=== PATIENT | male | born 1990 | race Caucasian/White ===

== ENCOUNTER 2022-10-25 08:37 | Emergency (ER) | payer OTHER ==
[~2022-10-25] VITALS: Ht 177 cm; Wt 74.0 kg
--- NOTE | 2022-10-25 09:40 | ED General ---
General Chief Complaint: Facial Problems Stated Complaint: FACIAL INFECTION Nursing Triage Note: PT AMB TO [facility] PT CO OF L SIDED FACIAL SWELLING FOR A COUPLE DAYS. PT FACE SWOLLEN REDDEND, PT HAS SWELLING FROM JAW AREA UP INTO L EYE. PT HAS ABCESS AREA NEAR MOUSTACHE THAT IS OOZING SOME YELLOW THICK FLUID. DENIES FEVERS. WAS SEEN @ [facility] YESTERDAY RECIEVED ROCEPHIN AND CLINDAMYCIN 150MG PO Q 8 HOURS AND IS GETTING WORSE. PT ALSO HAS RENAL FAILURE AND IS ON PERITONEAL DIALYSIS Source of Information: Patient Exam Limitations: No Limitations History of Present Illness Date Seen by Provider: Oct 25, 2022 Time Seen by Provider: 09:29 Initial Comments This 32-year-old gentleman presents to the emergency room with significant pain and swelling to the left face. He has presumed cellulitis and possibly abscess. There is a crusted area with drainage superior and lateral to the left corner of his mouth. He denies any fever. Symptoms have been present for 3 to 4 days. He presented to the [facility] clinic yesterday and was given a Rocephin injection and prescribed clindamycin 450 mg 3 times daily. He reports pain is 5/10. 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 He does not have a primary care provider but his heel painter is Orlando Gastelum at [facility] in [place]. Allergies and Home Medications Allergies Coded Allergies: No Known Drug Allergies (Unverified , 10/25/22) Patient Home Medication List Home Medication List Reviewed: Yes Doxycycline Hyclate (Doxycycline Hyclate) 100 Mg Tablet, 100 MG PO BID Prescribed by: AJ FIGUEROA on 10/25/22 1209 Hydrocodone/Acetaminophen (Hydrocodone-Acetamin 5-325 mg) 5 Mg-325 Mg Tablet, 1 TAB PO Q4H PRN for PAIN-MODERATE (5-7) Prescribed by: AJ FIGUEROA on 10/25/22 1210 Ondansetron (Ondansetron Odt) 4 Mg Tab.rapdis, 4 MG SL Q4H PRN for NAUSEA/VOMITING Prescribed by: AJ FIGUEROA on 10/25/22 1209 Review of Systems Review of Systems Constitutional: no symptoms reported EENTM: see HPI Respiratory: no symptoms reported Cardiovascular: no symptoms reported Gastrointestinal: no symptoms reported Genitourinary: see HPI Musculoskeletal: no symptoms reported Skin: no symptoms reported Psychiatric/Neurological: No Symptoms Reported Hematologic/Lymphatic: No Symptoms Reported Immunological/Allergic: no symptoms reported Past Zyuyubh-Wiwhpq-Glsjtt Hx Patient Social History Tobacco Use?: No Use of E-Cig and/or Vaping dev: No Substance use?: Yes Substance type: Marijuana Alcohol Use?: No Past Medical History Surgeries: Yes Cardiac (Cardiac angiography without intervention), Renal (Biopsy) Respiratory: No Cardiac: No Neurological: No Genitourinary: Yes Renal Failure (CKD on peritoneal dialysis secondary to Alport syndrome) Gastrointestinal: No Musculoskeletal: No Endocrine: No HEENT: No Cancer: No Psychosocial: No Integumentary: No Physical Exam-Suspected Sepsis Physical Exam Vital Signs Vital Signs - First Documented 10/25/22 09:09 Pulse 89 Resp 18 B/P (MAP) 180/130 (147) Pulse Ox 97 Capillary Refill : Less Than 3 Seconds Blood Pressure Mean: 147 Height, Weight, BMI Height: '" Weight: lbs. oz. kg; 23.00 BMI Method: General Appearance: No Apparent Distress, WD/WN, Thin HEENT: PERRL/EOMI, TMs Normal, Other (Severe swelling to the left face extending from the lips up to the periorbital and eyelid region. There is a c rusted area superior and lateral to the left mouth corner that is oozing some purulent and serous see fluid. There is scattered erythema over the swollen areas. These areas are tender to palpation.) Neck: Normal Inspection, Non Tender Respiratory: Lungs Clear, Normal Breath Sounds, No Accessory Muscle Use Cardiovascular: Regular Rate, Rhythm, No Edema, No Murmur Extremity: Normal Inspection Neurologic/Psychiatric: Alert, Oriented x3, No Motor/Sensory Deficits, Normal Mood/Affect, floatlight powder mixer II-XII Norm as Tested Skin: warm/dry, other (See above) Focused Exam Lactate Level 10/25/22 09:48: Lactic Acid Level 0.62 Lactic Acid Level Progress/Results/Core Measures Suspected Sepsis SIRS Temperature: Pulse: 89 Respiratory Rate: 18 Laboratory Tests 10/25/22 09:48: White Blood Count 9.9 Blood Pressure 180 /130 Mean: 147 10/25/22 09:48: Lactic Acid Level 0.62 Laboratory Tests 10/25/22 09:48: Creatinine 15.35H, INR Comment 1.1, Platelet Count 211, Total Bilirubin 0.6 Results/Orders Lab Results Laboratory Tests Test 10/25/22 09:48 Range/Units White Blood Count 9.9 4.3-11.0 10^3/uL Red Blood Count 2.93 L 4.30-5.52 10^6/uL Hemoglobin 9.3 L 13.3-17.7 g/dL Hematocrit 27 L 40-54 % Mean Corpuscular Volume 93 80-99 fL Mean Corpuscular Hemoglobin 32 25-34 pg Mean Corpuscular Hemoglobin Concent 34 32-36 g/dL Red Cell Distribution Width 15.8 H 10.0-14.5 % Platelet Count 211 130-400 10^3/uL Mean Platelet Volume 9.7 9.0-12.2 fL Immature Granulocyte % (Auto) 0 % Neutrophils (%) (Auto) 77 H 42-75 % Lymphocytes (%) (Auto) 17 12-44 % Monocytes (%) (Auto) 6 0-12 % Eosinophils (%) (Auto) 0 0-10 % Basophils (%) (Auto) 0 0-10 % Neutrophils # (Auto) 7.6 1.8-7.8 10^3/uL Lymphocytes # (Auto) 1.6 1.0-4.0 10^3/uL Monocytes # (Auto) 0.6 0.0-1.0 10^3/uL Eosinophils # (Auto) 0.0 0.0-0.3 10^3/uL Basophils # (Auto) 0.0 0.0-0.1 10^3/uL Immature Granulocyte # (Auto) 0.0 0.0-0.1 10^3/uL Prothrombin Time 14.8 H 12.2-14.7 SEC INR Comment 1.1 0.8-1.4 Activated Partial Thromboplast Time 32 24-35 SEC Sodium Level 133 L 135-145 MMOL/L Potassium Level 4.8 3.6-5.0 MMOL/L Chloride Level 100 98-107 MMOL/L Carbon Dioxide Level 22 21-32 MMOL/L Anion Gap 11 5-14 MMOL/L Blood Urea Nitrogen 74 H 7-18 MG/DL Creatinine 15.35 H 0.60-1.30 MG/DL Estimat Glomerular Filtration Rate 4 BUN/Creatinine Ratio 5 Glucose Level 108 H 70-105 MG/DL Lactic Acid Level 0.62 0.50-2.00 MMOL/L Calcium Level 8.2 L 8.5-10.1 MG/DL Corrected Calcium 8.8 8.5-10.1 MG/DL Total Bilirubin 0.6 0.1-1.0 MG/DL Aspartate Amino Transf (AST/SGOT) 12 5-34 U/L Alanine Aminotransferase (ALT/SGPT) 7 0-55 U/L Alkaline Phosphatase 45 40-136 U/L C-Reactive Protein High Sensitivity 1.18 H 0.00-0.50 MG/DL Total Protein 5.6 L 6.4-8.2 GM/DL Albumin 3.2 3.2-4.5 GM/DL My Orders Orders - AJ RIVEAR MD Cbc With Automated Diff (10/25/22 09:28) Hs C Reactive Protein (10/25/22 09:28) Ed Iv/Invasive Line Start (10/25/22 09:28) Ondansetron Injection (Zofran Injectio (10/25/22 09:45) Ct Neck (Soft Tissue) Wo (10/25/22 09:37) Comprehensive Metabolic Panel (10/25/22 09:37) Blood Culture (10/25/22 09:37) Protime With Inr (10/25/22 09:37) Partial Thromboplastin Time (10/25/22 09:37) Vital Signs Adult Sepsis Patie Q15M (10/25/22 09:37) Remove Rings In Anticipation O (10/25/22 09:37) Lactic Acid Analyzer (10/25/22 09:37) Hydrocodone/Apap 5/325 Tablet (Lortab 5 (10/25/22 12:00) Medications Given in ED Current Medications Medications Dose Ordered Sig/Alicia Route Start Time Stop Time Status Last Admin Dose Admin Acetaminophen/ Hydrocodone Bitart 1 ea ONCE ONCE PO 10/25/22 12:00 10/25/22 12:01 DC 10/25/22 12:17 1 EA Ondansetron HCl 4 mg ONCE ONCE IVP 10/25/22 09:45 10/25/22 09:46 DC 10/25/22 10:26 4 MG Vital Signs/I&O Capillary Refill : Less Than 3 Seconds Blood Pressure Mean: 147 Progress Note : Progress Note Patient was interviewed and examined. Labs were obtained including septic workup including CBC, CMP, Lactic Acid, and CRP. Patient does not appear septic due as vital signs, WBC, CRP, and lactic acid are all normal. CT soft tissues of the neck was viewed by me. No discrete abscess was seen. CT report was reviewed as noted below. CT was performed without contrast due to his renal failure. Because the CT was performed without contrast, it was followed by bedside ultrasound. There was area of lucency noted on ultrasound but when compared with the contralateral side, it seemed to correlate with a muscle sheath of the perioral musculature. Incision and drainage was therefore not performed. There was some oozing around this area suggesting that abscess had been present or still is present to some degree. Warm compresses as often as he is able were recommended. Doxycycline was added for additional antibiotic coverage for staph. Doxycycline was selected due to the renal failure. Since patient did not have significant abscess nor sepsis, admission was not sought. Pain was treated with hydrocodone. Zofran was given for nausea. See discharge instructions for further discussion. Diagnostic Imaging Diagonstic Imaging: CT Plain Films/CT/US/NM/MRI: other (Soft tissues of the neck) Comments CT viewed by me and report reviewed as below: NAME: ANGELA PAINTING [facility] REC#: [id number] PT STATUS: REG ER : 1990 PHYSICIAN: AJ RIVERA MD ADMIT DATE: 10/25/22/ER Signed Date of Exam:10/25/22 CT NECK (SOFT TISSUE) WO PROCEDURE: CT neck soft tissue without contrast. TECHNIQUE: Multiple contiguous axial images were obtained through the neck without the use of intravenous contrast. Auto Exposure Controls were utilized during the CT exam to meet ALARA standards for radiation dose reduction. INDICATION: Swelling under the left cheek. COMPARISON: None. FINDINGS: There is diffuse soft tissue edema and inflammation in the face left of midline extending from the inferior aspect of the left orbit into the left neck. Milder inflammation is seen in the soft tissues of the face on the right. No focal fluid collection is seen to suggest abscess. No soft tissue mass is identified. Reactive cervical lymphadenopathy is seen, greatest in the left submandibular region and left level 2 cervical lymph node station. Dental caries and periapical lucencies are seen involving the molars of the maxilla bilaterally. No obvious cortical disruption is seen. The posterior nasopharynx and oropharynx demonstrate appropriate symmetry. There is no displacement of the parapharyngeal fat planes. There is no abnormal process evident within the prevertebral or retropharyngeal space. There is no evidence of abnormal thickening of the epiglottis or aryepiglottic folds. The vocal folds appear symmetric. The parotid, submandibular, and thyroid glands are unremarkable. The visualized lung apices are clear. The visualized orbital contents are unremarkable. No post septal inflammation. Mucosal thickening is seen in the bilateral maxillary sinuses. The mastoids and middle ears are clear. No acute osseous abnormality in the cervical spine. IMPRESSION: 1. Findings suggestive of cellulitis involving the soft tissues of the face left of midline from the inferior aspect of the left orbit into the submandibular region. No abscess or discrete soft tissue mass is seen. 2. 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 This may be the source of the facial cellulitis. There is also paranasal sinus disease involving the maxillary sinuses which also contribute to the facial cellulitis. Recommend continued close followup. 3. No evidence of post septal inflammation in the orbits. 4. Reactive lymphadenopathy in the neck, greatest on the left. Dictated by: Dictated on workstation # [id number] Dict: 10/25/22 0959 Trans: 10/25/22 1037 [id number] Interpreted by: SKIP ROMERO DO Electronically signed by: SKIP ROMERO DO 10/25/22 1037 Departure Impression Primary Impression: Facial cellulitis Additional Impressions: Periodontal disease Nausea End stage renal disease on dialysis Disposition: HOME, SELF-CARE Condition: Improved Departure-Patient Inst. Decision time for Depature: 12:01 Referrals: CECILIA BARRERA BRETT D DO KIDO, TAKAAKI MD NO,LOCAL PHYSICIAN (PCP) Primary Care Physician Patient Instructions: Cellulitis (Skin Infection), Adult ED Add. Discharge Instructions: At this time it does not appear (based on CT exam (that there is a significant abscess that is amenable to drainage. However, it appears the drainage has occurred and using warm compresses can encourage that drainage to continue. Use warm moist compresses on your left cheek to encourage draining as much as possible. Very gentle milking of the area around the drainage may also be used to encourage expression of fluid or pus. Keeping your head elevated rather than lying flat should help reduce swelling. For mild pain you may use Tylenol (acetaminophen) up to 1000 mg every 6 hours as needed. For more severe pain use hydrocodone as prescribed. Hydrocodone may cause drowsiness, so use with caution. Do not operate machinery, drive, or make important decisions while on hydrocodone. Hydrocodone may also cause constipation, so you may wish to use a stool softener such as Colace while taking hydrocodone. Complete the entire course of clindamycin as prescribed. Add doxycycline as prescribed as well. Use the Zofran (ondansetron) as prescribed for nausea or vomiting. Continue dialysis as routinely scheduled. Please have a low threshold for returning to care. If you believe there is an abscess developing with an area of fullness, if you develop fevers greater than 100.3 F, or if you have any other concerning developments, please return to the emergency room. The healing and progression of this cellulitis should be closely monitored. Please establish with a primary care provider or contact one of the local surgeons listed below to arrange follow-up. Alternatively, you may also return to the emergency room for repeat check of your wound if a primary care provider or surgeon is not available in a timely fashion. Please also schedule an appointment with a dentist within the next few weeks to have your periodontal disease evaluated. Continue brushing teeth gently twice daily with a soft bristle toothbrush. All discharge instructions reviewed with patient and/or family. Voiced understanding. Scripts Ondansetron (Ondansetron Odt) 4 Mg Tab.rapdis 4 MG SL Q4H PRN for NAUSEA/VOMITING, #10 TAB 10 Refills Prov: AJ RIVERA MD 10/25/22 Hydrocodone/Acetaminophen (Hydrocodone-Acetamin 5-325 mg) 5 Mg-325 Mg Tablet 1 TAB PO Q4H PRN for PAIN-MODERATE (5-7), #15 TAB Prov: AJ RIVERA MD 10/25/22 Doxycycline Hyclate (Doxycycline Hyclate) 100 Mg Tablet 100 MG PO BID, #20 TAB 0 Refills Prov: AJ RIVERA MD 10/25/22 AJ RIVERA MD Oct 25, 2022 09:40
[2022-10-25] MEDS ORDERED: ONDANSETRON 4 MG/2 ML (SDV) Z0FRAN IVP ONE (09:45)
[2022-10-25 09:52] LABS: BASOPHILS % (AUTO) 0 % (0-10); EOSINOPHILS % (AUTO) 0 % (0-10); HEMATOCRIT 27 % (40-54); HEMOGLOBIN 9.3 g/dL (13.3-17.7); LYMPHOCYTES # (AUTO) 1.6 10^3/uL (1.0-4.0); LYMPHOCYTES % (AUTO) 17 % (12-44); MEAN CORPUSCULAR HEMOGLOBIN 32 pg (25-34); MEAN CORPUSCULAR HGB CONC 34 g/dL (32-36); MEAN CORPUSCULAR VOLUME 93 fL (80-99); MEAN PLATELET VOLUME 9.7 fL (9.0-12.2); MONOCYTES # (AUTO) 0.6 10^3/uL (0.0-1.0); MONOCYTES % (AUTO) 6 % (0-12); NEUTROPHILS # (AUTO) 7.6 10^3/uL (1.8-7.8); NEUTROPHILS % (AUTO) 77 % (42-75); PLATELET COUNT 211 10^3/uL (130-400); WHITE BLOOD COUNT 9.9 10^3/uL (4.3-11.0)
[2022-10-25 10:03] LABS: ALBUMIN 3.2 GM/DL (3.2-4.5)
[2022-10-25 10:04] LABS: POTASSIUM 4.8 MMOL/L (3.6-5.0)
[2022-10-25 10:05] LABS: CALCIUM 8.2 MG/DL (8.5-10.1); INR 1.1 (0.8-1.4); PROTHROMBIN TIME PATIENT 14.8 SEC (12.2-14.7)
[2022-10-25 10:06] LABS: TOTAL PROTEIN 5.6 GM/DL (6.4-8.2)
[2022-10-25 10:08] LABS: BILIRUBIN,TOTAL 0.6 MG/DL (0.1-1.0)
[2022-10-25 10:10] LABS: CREATININE SERUM 15.35 MG/DL (0.60-1.30)
--- NOTE | 2022-10-25 10:17 | Diagnostic Imaging Report ---
PROCEDURE: CT neck soft tissue without contrast. TECHNIQUE: Multiple contiguous axial images were obtained through the neck without the use of intravenous contrast. Auto Exposure Controls were utilized during the CT exam to meet ALARA standards for radiation dose reduction. INDICATION: Swelling under the left cheek. COMPARISON: None. FINDINGS: There is diffuse soft tissue edema and inflammation in the face left of midline extending from the inferior aspect of the left orbit into the left neck. Milder inflammation is seen in the soft tissues of the face on the right. No focal fluid collection is seen to suggest abscess. No soft tissue mass is identified. Reactive cervical lymphadenopathy is seen, greatest in the left submandibular region and left level 2 cervical lymph node station. Dental caries and periapical lucencies are seen involving the molars of the maxilla bilaterally. No obvious cortical disruption is seen. The posterior nasopharynx and oropharynx demonstrate appropriate symmetry. There is no displacement of the parapharyngeal fat planes. There is no abnormal process evident within the prevertebral or retropharyngeal space. There is no evidence of abnormal thickening of the epiglottis or aryepiglottic folds. The vocal folds appear symmetric. The parotid, submandibular, and thyroid glands are unremarkable. The visualized lung apices are clear. The visualized orbital contents are unremarkable. No post septal inflammation. Mucosal thickening is seen in the bilateral maxillary sinuses. The mastoids and middle ears are clear. No acute osseous abnormality in the cervical spine. IMPRESSION: 1. Findings suggestive of cellulitis involving the soft tissues of the face left of midline from the inferior aspect of the left orbit into the submandibular region. No abscess or discrete soft tissue mass is seen. 2. 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 This may be the source of the facial cellulitis. There is also paranasal sinus disease involving the maxillary sinuses which also contribute to the facial cellulitis. Recommend continued close followup. 3. No evidence of post septal inflammation in the orbits. 4. Reactive lymphadenopathy in the neck, greatest on the left. Dictated by: Dictated on workstation # [id number]
[2022-10-25] MEDS ORDERED: HYDROcodone/APAP 5 MG/325 MG (LORTAB) TAB PO ONE (12:00)
[2022-10-25] MEDS ORDERED: ONDA4TAB11 SL (12:09)
[2022-10-25] MEDS ORDERED: ACHD5005 PO (12:09)
[2022-10-25] MEDS ORDERED: DOXY100T2 PO (12:09)
[2022-10-25 12:17] VITALS: BP 168/100
== END 2022-10-25 12:17 | disposition home or self-care (01) ==
LOC: EDUNIT# 08:37 → ER 08:40
DX: L03.211 Cellulitis of face (principal); K05.6 Periodontal disease, unspecified; N18.6 End stage renal disease; Z99.2 Dependence on renal dialysis
CPT/HCPCS: 36415; 70490; 80053; 83605; 85025; 85610; 85730; 86141; 87040

== ENCOUNTER 2022-11-16 16:42 | Emergency (ER) | payer OTHER ==
[~2022-11-16] VITALS: Ht 177 cm; Wt 74.0 kg
[~2022-11-16 16:42] MED LIST: ACHD5005 PO; DOXY100T2 PO; ONDA4TAB11 SL
--- NOTE | 2022-11-16 17:09 | ED General ---
General Chief Complaint: Cardiac/General Problems Stated Complaint: ELEV BP Nursing Triage Note: Patient ambulatory to room w c/o high blood pressure. hx of kidney disease. currently on dialysis. Patient takes bp meds at home but "they are not working." 180/133 at home. Losartin, Amlodipine, Carbiterol, Hydralazine last taken an hr ago. Just came off peritineal dialysis 2 hrs ago. Source of Information: Patient Exam Limitations: No Limitations History of Present Illness Date Seen by Provider: Nov 16, 2022 Time Seen by Provider: 16:57 Initial Comments Patient is a 32-year-old male with a history of Alport's syndrome who presents to the emergency room with a chief complaint of high blood pressure. Patient has a history of end-stage renal disease on peritoneal dialysis 8 hours a day. He states he has not missed any dialysis. He took his blood pressure medications approximately an hour prior to arrival, losartan, amlodipine carvedilol and hydralazine and has not had any improvement in his blood pressure. He has been running in the 180s over 130s consistently. His only symptom is moderate headache that he states is entirely consistent with prior headaches related to high blood pressure. No vision changes, no chest pain or shortness of breath. No abdominal pain. Urinating normally. No fevers, chills or sick contacts. Timing/Duration: 1 Week Severity: Moderate Associated Systoms: Headaches Allergies and Home Medications Allergies Coded Allergies: No Known Drug Allergies (Unverified , 10/25/22) Patient Home Medication List Home Medication List Reviewed: Yes Doxycycline Hyclate (Doxycycline Hyclate) 100 Mg Tablet, 100 MG PO BID Prescribed by: AJ FIGUEROA on 10/25/22 1209 Hydrocodone/Acetaminophen (Hydrocodone-Acetamin 5-325 mg) 5 Mg-325 Mg Tablet, 1 TAB PO Q4H PRN for PAIN-MODERATE (5-7) Prescribed by: AJ FIGUEROA on 10/25/22 1210 Ondansetron (Ondansetron Odt) 4 Mg Tab.rapdis, 4 MG SL Q4H PRN for NAUSEA/VOMITING Prescribed by: AJ FIGUEROA on 10/25/22 1209 Review of Systems Review of Systems Constitutional: see HPI EENTM: no symptoms reported Respiratory: no symptoms reported Cardiovascular: no symptoms reported Gastrointestinal: no symptoms reported Genitourinary: no symptoms reported Musculoskeletal: no symptoms reported Skin: no symptoms reported Psychiatric/Neurological: Headache All Other Systems Reviewed Negative Unless Noted: Yes Past Tbjttua-Owoqvd-Lgvgms Hx Patient Social History Tobacco Use?: No Substance use?: Yes Substance type: Marijuana Alcohol Use?: No Immunizations Up To Date First/Initial COVID19 Vaccinat: unknown COVID19 Vaccine Platform Beater: unknown Past Medical History Surgeries: Yes Cardiac, Renal Respiratory: No Cardiac: No Neurological: No Genitourinary: Yes Renal Failure Gastrointestinal: No Musculoskeletal: No Endocrine: No HEENT: No Cancer: No Psychosocial: No Integumentary: No Physical Exam Vital Signs Vital Signs - First Documented 11/16/22 16:49 Temp 36.0 Pulse 83 Resp 18 B/P (MAP) 181/129 (146) Pulse Ox 98 O2 Delivery Room Air Capillary Refill : Less Than 3 Seconds Height, Weight, BMI Height: '" Weight: lbs. oz. kg; 23.00 BMI Method: General Appearance: No Apparent Distress, WD/WN Eyes: Bilateral Eye Normal Inspection, Bilateral Eye PERRL, Bilateral Eye EOMI HEENT: PERRL/EOMI Neck: Normal Inspection Respiratory: Lungs Clear, Normal Breath Sounds, No Accessory Muscle Use, No Respiratory Distress Cardiovascular: Regular Rate, Rhythm, Normal Peripheral Pulses Gastrointestinal: Soft Extremity: Normal Inspection, No Pedal Edema Neurologic/Psychiatric: Alert, Oriented x3, No Motor/Sensory Deficits, Normal Mood/Affect Skin: Normal Color, Warm/Dry Progress/Results/Core Measures Suspected Sepsis SIRS Temperature: Pulse: 83 Respiratory Rate: 18 Laboratory Tests 11/16/22 17:20: White Blood Count 4.1L Blood Pressure 181 /129 Mean: 146 Laboratory Tests 11/16/22 17:20: Platelet Count 143, Total Bilirubin 0.8 Results/Orders Lab Results Laboratory Tests Test 11/16/22 17:20 Range/Units White Blood Count 4.1 L 4.3-11.0 10^3/uL Red Blood Count 3.01 L 4.30-5.52 10^6/uL Hemoglobin 9.5 L 13.3-17.7 g/dL Hematocrit 27 L 40-54 % Mean Corpuscular Volume 91 80-99 fL Mean Corpuscular Hemoglobin 32 25-34 pg Mean Corpuscular Hemoglobin Concent 35 32-36 g/dL Red Cell Distribution Width 12.3 10.0-14.5 % Platelet Count 143 130-400 10^3/uL Mean Platelet Volume 11.4 9.0-12.2 fL Immature Granulocyte % (Auto) 1 % Neutrophils (%) (Auto) 64 42-75 % Lymphocytes (%) (Auto) 29 12-44 % Monocytes (%) (Auto) 6 0-12 % Eosinophils (%) (Auto) 0 0-10 % Basophils (%) (Auto) 1 0-10 % Neutrophils # (Auto) 2.6 1.8-7.8 10^3/uL Lymphocytes # (Auto) 1.2 1.0-4.0 10^3/uL Monocytes # (Auto) 0.2 0.0-1.0 10^3/uL Eosinophils # (Auto) 0.0 0.0-0.3 10^3/uL Basophils # (Auto) 0.0 0.0-0.1 10^3/uL Immature Granulocyte # (Auto) 0.0 0.0-0.1 10^3/uL Sodium Level 136 135-145 MMOL/L Potassium Level 4.9 3.6-5.0 MMOL/L Chloride Level 103 98-107 MMOL/L Carbon Dioxide Level 20 L 21-32 MMOL/L Anion Gap 13 5-14 MMOL/L Blood Urea Nitrogen 74 H 7-18 MG/DL Estimat Glomerular Filtration Rate 4 BUN/Creatinine Ratio 5 Glucose Level 114 H 70-105 MG/DL Calcium Level 8.5 8.5-10.1 MG/DL Corrected Calcium 8.9 8.5-10.1 MG/DL Total Bilirubin 0.8 0.1-1.0 MG/DL Alkaline Phosphatase 36 L 40-136 U/L Total Protein 5.7 L 6.4-8.2 GM/DL Albumin 3.5 3.2-4.5 GM/DL My Orders Orders - URVASHI DE LA TORRE MD Ed Iv/Invasive Line Start (11/16/22 17:09) Cbc With Automated Diff (11/16/22 17:09) Comprehensive Metabolic Panel (11/16/22 17:09) Losartan Tablet (Cozaar Tablet) (11/16/22 17:30) Carvedilol Tablet (Coreg Tablet) (11/16/22 17:30) Nifedipine Xl Tablet (Procardia Xl Tab (11/16/22 17:30) Acetaminophen Tablet (Tylenol Tablet) (11/16/22 17:30) Medications Given in ED Current Medications Medications Dose Ordered Sig/Alicia Route Start Time Stop Time Status Last Admin Dose Admin Acetaminophen 1,000 mg ONCE ONCE PO 11/16/22 17:30 11/16/22 17:31 DC 11/16/22 17:30 1,000 MG Vital Signs/I&O 11/16/22 16:49 Temp 36.0 Pulse 83 Resp 18 B/P (MAP) 181/129 (146) Pulse Ox 98 O2 Delivery Room Air Capillary Refill : Less Than 3 Seconds Blood Pressure Mean: 146 Progress Note #1: Time: 17:08 Progress Note Call made to the transplant team at at this time to speak with the parachute packer. Progress Note #2: Time: 17:18 Progress Note Discussed with Dr Lovett transplant financial management at (where patient's team is). He made recommendations to change medications and discontinue amlodipine and switch to Nifedipine 60mg BID; increase carvedilol to 25mg BID and double his Losartan to 50 mg. Will add these medications and see how his BP does while awaiting labs. Departure Impression Primary Impression: High blood pressure with end-stage kidney disease Disposition: 01 HOME, SELF-CARE Condition: Improved Departure-Patient Inst. Referrals: RUBIN FARRELL DO (PCP/Family) Primary Care Physician Patient Instructions: High Blood Pressure Emergencies Add. Discharge Instructions: We are going to change the dosing of some of your medications and stop one of them, the amlodipine. These instructions are per Dr. Lovett your transplant financial management. So stop the amlodipine and start taking nifedipine 60 mg XR twice a day starting tomorrow. We are increasing your carvedilol from 12.5 mg twice a day to 25 mg twice a day. We are increasing your losartan from 25 mg once a day to 50 mg once a day. Please keep tabs on your blood pressure over the next several days. If you become symptomatic, lightheaded, short of breath, dizzy please check your blood pressure otherwise you can check your blood pressure once or twice a day at different times and keep a log of this. Please touch base with your transplant team Sunday or Sunday and let them know how these medication changes are wo rking. If you develop any new, concerning or emergent complaints please come back to the emergency room for reevaluation. Scripts Losartan Potassium (Losartan Potassium) 50 Mg Tablet 50 MG PO DAILY, #30 TAB Prov: URVASHI DE LA TORRE MD 11/16/22 Nifedipine (Nifedipine ER) 60 Mg Tab.er.24 60 MG PO BID, #60 TAB Prov: URVASHI DE LA TORRE MD 11/16/22 Carvedilol (Carvedilol) 25 Mg Tablet 25 MG PO BID, #60 TAB Prov: URVASHI DE LA TORRE MD 11/16/22 Copy Copies To 1: RUBIN FARRELL KATHRYN M MD Nov 16, 2022 17:09
[2022-11-16] MEDS ORDERED: NIFEdipine ER 30 MG (PROCARDIA XL) TAB PO ONE (17:30)
[2022-11-16] MEDS ORDERED: ACETAMINOPHEN 500 MG TAB (TYLENOL) PO ONE (17:30)
[2022-11-16] MEDS ORDERED: LOSARTAN 25 MG (COZAAR) TAB PO ONE (17:30)
[2022-11-16 17:32] LABS: BASOPHILS % (AUTO) 1 % (0-10); EOSINOPHILS % (AUTO) 0 % (0-10); HEMATOCRIT 27 % (40-54); HEMOGLOBIN 9.5 g/dL (13.3-17.7); LYMPHOCYTES # (AUTO) 1.2 10^3/uL (1.0-4.0); LYMPHOCYTES % (AUTO) 29 % (12-44); MEAN CORPUSCULAR HEMOGLOBIN 32 pg (25-34); MEAN CORPUSCULAR HGB CONC 35 g/dL (32-36); MEAN CORPUSCULAR VOLUME 91 fL (80-99); MEAN PLATELET VOLUME 11.4 fL (9.0-12.2); MONOCYTES # (AUTO) 0.2 10^3/uL (0.0-1.0); MONOCYTES % (AUTO) 6 % (0-12); NEUTROPHILS # (AUTO) 2.6 10^3/uL (1.8-7.8); NEUTROPHILS % (AUTO) 64 % (42-75); PLATELET COUNT 143 10^3/uL (130-400); WHITE BLOOD COUNT 4.1 10^3/uL (4.3-11.0)
[2022-11-16 17:40] LABS: ALBUMIN 3.5 GM/DL (3.2-4.5)
[2022-11-16 17:41] LABS: POTASSIUM 4.9 MMOL/L (3.6-5.0)
[2022-11-16 17:42] LABS: CALCIUM 8.5 MG/DL (8.5-10.1)
[2022-11-16 17:43] LABS: TOTAL PROTEIN 5.7 GM/DL (6.4-8.2)
[2022-11-16 17:45] LABS: BILIRUBIN,TOTAL 0.8 MG/DL (0.1-1.0)
[2022-11-16 17:47] LABS: CREATININE SERUM 15.37 MG/DL (0.60-1.30)
[2022-11-16] MEDS ORDERED: CARV25TA PO (17:52)
[2022-11-16] MEDS ORDERED: NIFE-24 PO (17:52)
[2022-11-16] MEDS ORDERED: LOSA50TA63 PO (17:52)
[2022-11-16 18:20] VITALS: BP 169/124
== END 2022-11-16 18:20 | disposition home or self-care (01) ==
LOC: EDUNIT# 16:42 → ER 16:44
DX: R03.0 Elevated blood-pressure reading, without diagnosis of hypertension (principal); N18.6 End stage renal disease; Z99.2 Dependence on renal dialysis
CPT/HCPCS: 36415; 80053; 85025

== ENCOUNTER 2023-01-01 19:58 | Emergency (ER) | payer OTHER ==
[~2023-01-01] VITALS: Ht 172 cm; Wt 58.9 kg
[~2023-01-01 19:58] MED LIST changes: +CARV25TA PO; +LOSA50TA63 PO; +NIFE-24 PO
[2023-01-01] MEDS ORDERED: CALCIUM CHLORIDE 1 GM/10 ML (IMS) SYR INJ ONE ×2 (20:00→21:15)
[2023-01-01] MEDS ORDERED: ROCURONIUM 10 MG/ML 5 ML SYRINGE IV ONE ×2 (20:00→21:30)
[2023-01-01] MEDS ORDERED: PROPOFOL DRIP (ICU) 100 ML IV ONE (20:04)
[2023-01-01 20:13] LABS: ABG OXYGEN SATURATION 85 % (94-100); ABG PCO2 47 MMHG (35-45); ABG PO2 71 MMHG (79-93); ABG TCO2 14.6 MMOL/L (21.0-31.0)
[2023-01-01 20:15] LABS: ABG PH 7.08 (7.37-7.43); ALLENS TEST YES-POS; INSPIRED O2 100; VENTILATOR NO
[2023-01-01] MEDS ORDERED: PROPOFOL DRIP (ICU) 100 ML IV SCH (20:15)
[2023-01-01] MEDS ORDERED: NS IV 1000 ML 1,000 ML IV SCH (20:15)
[2023-01-01] MEDS ORDERED: LIDOCAINE UROJET 2% GEL 10 ML PKG TOP ONE (20:15)
[2023-01-01] MEDS ORDERED: CEFEPIME INJECTION 1,000 MG in NS (IVPB) 50 ML IV ONE (20:15)
[2023-01-01 20:16] LABS: PATIENT TEMP 36.9
[2023-01-01 20:18] LABS: BASOPHILS # (AUTO) 0.1 10^3/uL (0.0-0.1); BASOPHILS % (AUTO) 1 % (0-10); EOSINOPHILS # (AUTO) 0.1 10^3/uL (0.0-0.3); EOSINOPHILS % (AUTO) 0 % (0-10); HEMATOCRIT 32 % (40-54); HEMOGLOBIN 10.2 g/dL (13.3-17.7); LYMPHOCYTES % (AUTO) 4 % (12-44); MEAN CORPUSCULAR HEMOGLOBIN 32 pg (25-34); MEAN CORPUSCULAR HGB CONC 32 g/dL (32-36); MEAN CORPUSCULAR VOLUME 100 fL (80-99); MONOCYTES # (AUTO) 1.4 10^3/uL (0.0-1.0); MONOCYTES % (AUTO) 6 % (0-12); NEUTROPHILS # (AUTO) 22.2 10^3/uL (1.8-7.8); NEUTROPHILS % (AUTO) 86 % (42-75); PLATELET COUNT 305 10^3/uL (130-400); WHITE BLOOD COUNT 25.7 10^3/uL (4.3-11.0)
[2023-01-01 20:24] LABS: ALBUMIN 4.1 GM/DL (3.2-4.5); CHLORIDE 107 MMOL/L (98-107); POTASSIUM 6.1 MMOL/L (3.6-5.0); SODIUM 141 MMOL/L (135-145)
[2023-01-01 20:25] LABS: AMMONIA 35 UMOL/L (11-32); AMYLASE 53 U/L (25-125); CALCIUM 8.8 MG/DL (8.5-10.1)
[2023-01-01 20:26] LABS: GLUCOSE 173 MG/DL (70-105)
[2023-01-01 20:28] LABS: BILIRUBIN,TOTAL 0.3 MG/DL (0.1-1.0)
[2023-01-01 20:30] LABS: ALKALINE PHOSPHATASE 75 U/L (40-136); CREATININE SERUM 12.53 MG/DL (0.60-1.30); GFR ESTIMATED 5
[2023-01-01] MEDS ORDERED: SODIUM BICARB 8.4% 50 MEQ/50 ML (ABBOTT) SYR IV ONE (20:30)
[2023-01-01 20:31] LABS: BUN/CREATININE RATIO 5
[2023-01-01 20:33] LABS: ALANINE AMINOTRANSFERASE 20 U/L (0-55); MAGNESIUM 3.4 MG/DL (1.6-2.4)
[2023-01-01 20:34] LABS: CREATINE KINASE 1101 U/L (30-200); FIBRIN DEGRADATION PRODUCTS 4.84 UG/ML (0.00-0.49); INR 1.1 (0.8-1.4); SALICYLATE < 5.0 MG/DL (5.0-20.0)
[2023-01-01 20:40] LABS: ACETAMINOPHEN < 10 UG/ML (10-30); CARBON DIOXIDE 9 MMOL/L (21-32)
--- NOTE | 2023-01-01 20:48 | Diagnostic Imaging Report ---
PROCEDURE: CT cervical spine without contrast. TECHNIQUE: Multiple contiguous axial images were obtained through the cervical spine without the use of intravenous contrast. Sagittal and coronal reformations were then performed. Auto Exposure Controls were utilized during the CT exam to meet ALARA standards for radiation dose reduction. INDICATION: Unresponsive. COMPARISON: None Findings: The cervical spine is normally aligned. No acute fracture. No aggressive lytic or blastic osseous lesion. The intervertebral disc heights are maintained. No high-grade spinal canal stenosis or neural foraminal narrowing. The thyroid gland is normal. No cervical lymphadenopathy. The visualized aerodigestive tract is unremarkable. The visualized portions of the lungs are clear. Impression: No acute osseous abnormality of the cervical spine. Dictated by: Dictated on workstation # [id number]
--- NOTE | 2023-01-01 20:51 | Diagnostic Imaging Report ---
PROCEDURE: CT head wo r/o stroke. TECHNIQUE: Multiple contiguous axial images were obtained through the brain without the use of intravenous contrast. Auto Exposure Controls were utilized during the CT exam to meet ALARA standards for radiation dose reduction. INDICATION: Unresponsive. Right posterior scalp hematoma trace subarachnoid hemorrhage in the right temporal lobe. The modi-white matter differentiation is preserved. No intraventricular blood. No blood within the suprasellar cisterns. Intraparenchymal hemorrhage in the right occipital lobe measuring 1.0 cm. Scattered hypoattenuation within the bilateral subcortical white matter. No midline shift or mass effect. No intracranial mass. The sella is normal. The paranasal sinuses and mastoids are clear. Mild mucosal thickening within the bilateral maxillary sinuses. IMPRESSION: Intraparenchymal hematoma within the right occipital lobe measuring up to 1 cm. Trace subarachnoid hemorrhage in the right temporal sulci. Age indeterminate nonspecific hypoattenuation within the bilateral subcortical white matter. MRI with and without contrast should be obtained for further workup as these may represent acute infarcts. Report given to YOGI Castañeda and faxed at 8:49 PM 01/01/2023/cb Dictated by: Dictated on workstation # [id number]
[2023-01-01 20:52] LABS: LYMPHOCYTES % (MANUAL) 5 %; MONOCYTES % (MANUAL) 5 %; NEUTROPHILS % (MANUAL) 90 %; PLATELET CLUMPS FEW; POLYCHROMASIA MODERATE
[2023-01-01 20:53] LABS: ANISOCYTOSIS MARKED; ERYTHROCYTE SEDIMENTATION RATE 5 MM/HR (0-15); MICROCYTOSIS MODERATE; SCHISTOCYTES SLIGHT; TEAR DROP CELLS SLIGHT
[2023-01-01 20:54] LABS: TSH (THYROID ANALYZER) 2.02 UIU/ML (0.35-4.94)
[2023-01-01] MEDS ORDERED: LABETALOL HCL 20 MG/4 ML VIAL IV ONE (21:00)
[2023-01-01] MEDS ORDERED: RT-ALBUTEROL SULF 2.5 MG/3 ML PRE-MIX VIAL INH STA (21:06)
--- NOTE | 2023-01-01 21:07 | Diagnostic Imaging Report ---
CHEST 1 VIEW, AP/PA ONLY INDICATION: AMS, INTUBATED. COMPARISON: None. FINDINGS: Support devices: Right central venous catheter tip projects over the SVC. Endotracheal tube projects over the upper trachea. Lungs: Normal lung volume. No focal consolidation. Stable pulmonary vasculature. Pleura: No pleural effusion or pneumothorax. Heart and Mediastinum: Cardiomegaly. Pulmonary vascularity is within normal limits. Osseous Structures and Soft Tissues: No acute osseous abnormality. Normal soft tissues. IMPRESSION: Cardiomegaly. No focal consolidation or carlos manuel pulmonary edema. Dictated by: Dictated on workstation # [id number]
[2023-01-01 21:09] LABS: CREATINE KINASE MB 11.3 NG/ML (<6.6)
[2023-01-01] MEDS ORDERED: DEXTROSE 50% 50 ML (IMS) SYR IV ONE (21:15)
[2023-01-01] MEDS ORDERED: inSUlin (REGULAR) HUMAN 1 UNIT/0.01 ML (CHARGE PER UNIT) IV ONE (21:15)
[2023-01-01] MEDS ORDERED: SODIUM POLYSTYRENE POWDER 15 GM BOTTLE NG ONE (21:15)
[2023-01-01 21:34] LABS: LIPASE 22 U/L (8-78)
[2023-01-01] MEDS ORDERED: CALC GLUC 1 GM/100 ML IV ONE (21:35)
[2023-01-01 21:38] LABS: BILIRUBIN,URINE NEGATIVE (NEGATIVE); CLARITY,URINE CLEAR; COLOR,URINE YELLOW; GLUCOSE, URINE (UA) 1+ (NEGATIVE); KETONES,URINE NEGATIVE (NEGATIVE); LEUKOCYTE ESTERASE ,URINE NEGATIVE (NEGATIVE); NITRITE,URINE NEGATIVE (NEGATIVE); PH,URINE 7.5 (5-9); PROTEIN,URINE 3+ (NEGATIVE)
[2023-01-01] MEDS ORDERED: DEXTROSE 50% 50 ML (IMS) SYR ONE (21:39)
[2023-01-01 21:54] LABS: ABG BASE EXCESS -6.1 MMOL/L (-2.5-2.5); ABG OXYGEN SATURATION 100 % (94-100); ABG PCO2 44 MMHG (35-45); ABG PO2 135 MMHG (79-93); ALLENS TEST YES-POS; INSPIRED O2 60%; PATIENT TEMP 36.9; VENTILATOR YES
[2023-01-01] MEDS ORDERED: NS (IVPB) 250 ML ONE (21:55)
[2023-01-01] MEDS ORDERED: niCARdipine IV PYXIS DRIP KIT = 50 MG X 2 VIALS ONE (21:55)
[2023-01-01 21:58] LABS: ABG PH 7.27 (7.37-7.43)
[2023-01-01] MEDS ORDERED: niCARdipine IV 50 MG in NS (IVPB) 230 ML IV SCH (22:00)
[2023-01-01 22:01] LABS: AMPHETAMINE SCREEN, URINE NEGATIVE (NEGATIVE); BARBITURATE SCREEN URINE NEGATIVE (NEGATIVE); BENZODIAZEPINES SCREEN URINE NEGATIVE (NEGATIVE); CANNABINOID SCREEN, URINE POSITIVE (NEGATIVE); COCAINE SCREEN URINE NEGATIVE (NEGATIVE); METHADONE STAT NEGATIVE (NEGATIVE); OPIATE SCREEN URINE NEGATIVE (NEGATIVE); OXYCODONE STAT NEGATIVE (NEGATIVE); PROPOXYPHENE STAT NEGATIVE (NEGATIVE); TRICYCLIC ANTIDEPRESSANTS SCRE NEGATIVE (NEGATIVE)
[2023-01-01 22:17] LABS: BACTERIA,URINE FEW /HPF; WBC,URINE 0-2 /HPF
[2023-01-01 22:18] LABS: AMORPHOUS SEDIMENT,UR FEW AMOR PHOSPHATE /LPF; URINE OTHER FEW SPERM /HPF
[2023-01-01 22:30] VITALS: BP 205/149
--- NOTE | 2023-01-24 05:43 | ED General ---
General Chief Complaint: Unresponsive Stated Complaint: UNRESPONSIVE Nursing Triage Note: pt to rm 6 via [facility] from home. [facility] reports pt was found lying prone in closet while on p.d dialysis treatment. Pt convulsed upon EMS arrival, pt not alert not conscious. EMS RSI and intubated pt on scene to protect airway. 7.0 ETT, 24cm at the teeth. EMS inititated 18g LAC SL in route to ER, patent upon arrival. Upon arrival pt 76% SpO2 via BVM. RT in room during triage, pt moved to ventilator immediatley upon arrival. UNK LKW Source of Information: EMS, Family (MOM AND BROTHER ), Old Records History of Present Illness Date Seen by Provider: January 01, 2023 Time Seen by Provider: 19:59 Initial Comments PT ARRIVES VIA EMS FROM HOME PT WAS FOUND LAYING FACE DOWN IN CLOSET, STILL ATTACHED TO PERITONEAL DIALYSIS, COMPLETELY UNRESPONSIVE WITH SNOROUS AND SOMEWHAT AGONAL BREATHING. LAST KNOWN WELL TIME WAS SOMETIME THIS MORNING. PT HAD "CONVULSIONS" FOR EMS. PT DOES NOT HAVE ANY REPORTED HISTORY OF SEIZURES. GLUCOSE 148 BY EMS PT WAS INTUBATED BY EMS PRIOR TO ARRIVAL, WITH ETOMIDATE 20 MG, SUCCINYLCHOLINE, FENTANYL 100 MCG, VERSED 5 MG. PT IS BEING BAGGED VIA ET TUBE ON ARRIVAL HERE EMS REPORT THEIR VITALS AFTER INTUBATION WERE O2 SAT 88%, HR 120'S, BP 240'S/140'S, ET CO2 54. ON ARRIVAL, O2 SATS IN THE LOW TO MID 70'S WHILE BEING BAGGED VIA ET TUBE. PT HAS HISTORY OF ALPORT'S SYNDROME WITH SEVERE HTN AND END STAGE RENAL FAILURE, ON PERITONEAL DIALYSIS HE RECEIVED A RENAL TRANSPLANT AT THE END OF NOVEMBER, AND HAS KNOWN REJECTION OF KIDNEY, AND THEREFORE PERITONEAL DIALYSIS HAS BEEN CONTINUED. HE HAS BEEN HOME FROM SINCE 12/28/22. Allergies and Home Medications Allergies Coded Allergies: No Known Drug Allergies (Unverified , 10/25/22) Patient Home Medication List Home Medication List Reviewed: Yes Carvedilol (Carvedilol) 25 Mg Tablet, 25 MG PO BID Prescribed by: URVASHI DE LA TORRE on 11/16/22 9262 Doxycycline Hyclate (Doxycycline Hyclate) 100 Mg Tablet, 100 MG PO BID Prescribed by: AJ FIGUEROA on 10/25/22 1209 Hydrocodone/Acetaminophen (Hydrocodone-Acetamin 5-325 mg) 5 Mg-325 Mg Tablet, 1 TAB PO Q4H PRN for PAIN-MODERATE (5-7) Prescribed by: AJ FIGUEROA on 10/25/22 1210 Losartan Potassium (Losartan Potassium) 50 Mg Tablet, 50 MG PO DAILY Prescribed by: URVASHI DE LA TORRE on 11/16/22 175 Nifedipine (Nifedipine ER) 60 Mg Tab.er.24, 60 MG PO BID Prescribed by: URVASHI DE LA TORRE on 11/16/22 175 Ondansetron (Ondansetron Odt) 4 Mg Tab.rapdis, 4 MG SL Q4H PRN for NAUSEA/VOMITING Prescribed by: AJ FIGUEROA on 10/25/22 1209 Review of Systems Review of Systems Constitutional: other (UNABLE TO OBTAIN) Past Tkjusbt-Ofkrgb-Ibtqmx Hx Patient Social History Tobacco Use?: No Substance use?: Yes Substance type: Marijuana Substance frequency: Daily Alcohol Use?: No Immunizations Up To Date First/Initial COVID19 Vaccinat: unknown Past Medical History Surgeries: Yes Cardiac, Dialysis, Kidney Transplant, Renal Respiratory: No Cardiac: Yes Hypertension Neurological: No Genitourinary: Yes (ALPORT'S SYNDROME; ESRD ON PEROTONEAL DIALYSIS; S/P RENAL TRANSPLANT) Renal Failure Gastrointestinal: No Musculoskeletal: No Endocrine: No HEENT: No Cancer: No Psychosocial: No Integumentary: No Family Medical History PAST MEDICAL HISTORY: CARDIAC CATH--NO INTERVENTION -ALPORT'S SYNDROME -RENAL BIOPSY HAS BEEN ON PERITONEAL DIALYSIS HAD RENAL TRANSPLANT END OF NOVEMBER AT , WITH ONGOING REJECTION. HAS BEEN HOME SINCE 12/28/22. PERITONEAL DIALYSIS CONTINUED POST TRANSPLANT. Physical Exam Vital Signs Capillary Refill : Less Than 3 Seconds Height, Weight, BMI Height: '" Weight: lbs. oz. kg; 19.00 BMI Method: General Appearance: Severe Distress, Other (PT INTUBATED AND UNRESPONSIVE. ) HEENT: Other (PUPILS PINPOINT AND EQUAL) Respiratory: Other (BREATH SOUNDS EQUAL WITH BAGGING VIA ET TUBE) Cardiovascular: Tachycardia Gastrointestinal: Soft, Other (RECENT SURGICAL SCAR IN RLQ, PERITONEAL DIALYSIS SITE / TUBING LLQ) Extremity: No Pedal Edema, Slow Capillary Refill Neurologic/Psychiatric: Other (UNRESPONSIVE) Skin: Cool (DRY), Pallor Focused Exam Sepsis Stage: Sepsis Possible Source: Unknown (2114) Lactate Level 01/01/23 20:12: Lactic Acid Level 11.10*H Time of Focused Exam: 21:15 Respiratory: Other (LUNG SOUNDS CLEAR AND EQUAL ON VENTILATOR) Cardiovascular: Tachycardia Lactic Acid Level Laboratory Tests Test 01/01/23 20:12 Lactic Acid Level 11.10 MMOL/L (0.50-2.00) *H Within 3hrs of presentation: Admin fluids, Admin ABX, Blood cultures prior to ABX's, Focus exam, Lactate level Procedures/Interventions Date of ETT Placement: January 01, 2023 Time of ETT Placement: 2011 Tube Size: 7.00 Progress/Results/Core Measures Suspected Sepsis SIRS Temperature: Pulse: 97 Respiratory Rate: 20 Laboratory Tests 01/01/23 20:04: White Blood Count 25.7H Blood Pressure 205 /149 Mean: 167 01/01/23 20:12: Lactic Acid Level 11.10*H Laboratory Tests 01/01/23 20:04: Creatinine 12.53H, INR Comment 1.1, Platelet Count 305, Total Bilirubin 0.3 Results/Orders Lab Results Laboratory Tests Test 01/01/23 20:04 01/01/23 20:09 01/01/23 20:12 01/01/23 21:02 Range/Units White Blood Count 25.7 H 4.3-11.0 10^3/uL Red Blood Count 3.18 L 4.30-5.52 10^6/uL Hemoglobin 10.2 L 13.3-17.7 g/dL Hematocrit 32 L 40-54 % Mean Corpuscular Volume 100 H 80-99 fL Mean Corpuscular Hemoglobin 32 25-34 pg Mean Corpuscular Hemoglobin Concent 32 32-36 g/dL Red Cell Distribution Width 17.5 H 10.0-14.5 % Platelet Count 305 130-400 10^3/uL Mean Platelet Volume 10.0 9.0-12.2 fL Immature Granulocyte % (Auto) 3 % Neutrophils (%) (Auto) 86 H 42-75 % Lymphocytes (%) (Auto) 4 L 12-44 % Monocytes (%) (Auto) 6 0-12 % Eosinophils (%) (Auto) 0 0-10 % Basophils (%) (Auto) 1 0-10 % Neutrophils # (Auto) 22.2 H 1.8-7.8 10^3/uL Lymphocytes # (Auto) 1.0 1.0-4.0 10^3/uL Monocytes # (Auto) 1.4 H 0.0-1.0 10^3/uL Eosinophils # (Auto) 0.1 0.0-0.3 10^3/uL Basophils # (Auto) 0.1 0.0-0.1 10^3/uL Immature Granulocyte # (Auto) 0.9 H 0.0-0.1 10^3/uL Neutrophils % (Manual) 90 % Lymphocytes % (Manual) 5 % Monocytes % (Manual) 5 % Clumped Platelets FEW Polychromasia MODERATE Anisocytosis MARKED Microcytosis MODERATE Macrocytosis MODERATE Tear Drop Cells SLIGHT Schistocytes SLIGHT Erythrocyte Sedimentation Rate 5 0-15 MM/HR Prothrombin Time 15.0 H 12.2-14.7 SEC INR Comment 1.1 0.8-1.4 Activated Partial Thromboplast Time 29 24-35 SEC D-Dimer 4.84 H 0.00-0.49 UG/ML Sodium Level 141 135-145 MMOL/L Potassium Level 6.1 H 3.6-5.0 MMOL/L Chloride Level 107 98-107 MMOL/L Carbon Dioxide Level 9 *L 21-32 MMOL/L Anion Gap 25 H 5-14 MMOL/L Blood Urea Nitrogen 59 H 7-18 MG/DL Creatinine 12.53 H 0.60-1.30 MG/DL Estimat Glomerular Filtration Rate 5 BUN/Creatinine Ratio 5 Glucose Level 173 H 70-105 MG/DL Calcium Level 8.8 8.5-10.1 MG/DL Corrected Calcium 8.7 8.5-10.1 MG/DL Magnesium Level 3.4 H 1.6-2.4 MG/DL Total Bilirubin 0.3 0.1-1.0 MG/DL Aspartate Amino Transf (AST/SGOT) 41 H 5-34 U/L Alanine Aminotransferase (ALT/SGPT) 20 0-55 U/L Alkaline Phosphatase 75 40-136 U/L Ammonia 35 H 11-32 UMOL/L Total Creatine Kinase 1101 H 30-200 U/L Creatine Kinase MB 11.3 *H <6.6 NG/ML Myoglobin 4794.5 H 10.0-92.0 NG/ML Troponin I 0.153 H <0.028 NG/ML C-Reactive Protein High Sensitivity 0.59 H 0.00-0.50 MG/DL Total Protein 7.0 6.4-8.2 GM/DL Albumin 4.1 3.2-4.5 GM/DL Amylase Level 53 25-125 U/L Lipase 22 8-78 U/L TSH [place] Testing 2.02 0.35-4.94 UIU/ML Salicylates Level < 5.0 L 5.0-20.0 MG/DL Acetaminophen Level < 10 L 10-30 UG/ML Serum Alcohol < 10 <10 MG/DL Blood Gas Puncture Site RIGHT RAD Blood Gas Patient Temperature 36.9 Arterial Blood pH 7.08 *L 7.37-7.43 Arterial Blood Partial Pressure CO2 47 H 35-45 MMHG Arterial Blood Partial Pressure O2 71 L 79-93 MMHG Arterial Blood HCO3 13 *L 23-27 MMOL/L Arterial Blood Total CO2 14.6 L 21.0-31.0 MMOL/L Arterial Blood Oxygen Saturation 85 L 94-100 % Arterial Blood Base Excess -15.0 L -2.5-2.5 MMOL/L Bear Test YES-POS Blood Gas Ventilator Setting NO Blood Gas Inspired Oxygen 100 Lactic Acid Level 11.10 *H 0.50-2.00 MMOL/L Influenza Type A (RT-PCR) Not Detected Not Detecte Influenza Type B (RT-PCR) Not Detected Not Detecte SARS-CoV-2 RNA (RT-PCR) Not Detected Not Detecte Glucometer 144 H 70-110 MG/DL Test 01/01/23 21:32 01/01/23 21:37 Range/Units Urine Color YELLOW Urine Clarity CLEAR Urine pH 7.5 5-9 Urine Specific [place] 1.020 1.016-1.022 Urine Protein 3+ H NEGATIVE Urine Glucose (UA) 1+ H NEGATIVE Urine Ketones NEGATIVE NEGATIVE Urine Nitrite NEGATIVE NEGATIVE Urine Bilirubin NEGATIVE NEGATIVE Urine Urobilinogen 0.2 < = 1.0 MG/DL Urine Leukocyte Esterase NEGATIVE NEGATIVE Urine RBC (Auto) 2+ H NEGATIVE Urine RBC 5-10 H /HPF Urine WBC 0-2 /HPF Urine Crystals PRESENT H /LPF Urine Amorphous Sediment FEW PAMELA PHOSPHATE H /LPF Urine Bacteria FEW H /HPF Urine Casts NONE /LPF Urine Mucus NEGATIVE /LPF Urine Other FEW SPERM H /HPF Urine Culture Indicated YES Urine Opiates Screen NEGATIVE NEGATIVE Urine Oxycodone Screen NEGATIVE NEGATIVE Urine Methadone Screen NEGATIVE NEGATIVE Urine Propoxyphene Screen NEGATIVE NEGATIVE Urine Barbiturates Screen NEGATIVE NEGATIVE Ur Tricyclic Antidepressants Screen NEGATIVE NEGATIVE Urine Phencyclidine Screen NEGATIVE NEGATIVE Urine Amphetamines Screen NEGATIVE NEGATIVE Urine Methamphetamines Screen NEGATIVE NEGATIVE Urine Benzodiazepines Screen NEGATIVE NEGATIVE Urine Cocaine Screen NEGATIVE NEGATIVE Urine Cannabinoids Screen POSITIVE H NEGATIVE Blood Gas Puncture Site RR Blood Gas Patient Temperature 36.9 Arterial Blood pH 7.27 *L 7.37-7.43 Arterial Blood Partial Pressure CO2 44 35-45 MMHG Arterial Blood Partial Pressure O2 135 H 79-93 MMHG Arterial Blood HCO3 20 L 23-27 MMOL/L Arterial Blood Total CO2 21.0 21.0-31.0 MMOL/L Arterial Blood Oxygen Saturation 100 94-100 % Arterial Blood Base Excess -6.1 L -2.5-2.5 MMOL/L Bear Test YES-POS Blood Gas Ventilator Setting YES Blood Gas Inspired Oxygen 60% Micro Results Microbiology 01/01/23 Blood Culture - Final, Complete No growth 01/01/23 Blood Culture - Final, Complete No growth My Orders Orders - ANALISA LEARY DO Accucheck Stat ONCE (01/01/23 20:03) Ed Iv/Invasive Line Start (01/01/23 20:03) Ekg Tracing (01/01/23 20:03) Catheter(Urinary) Insert & Ass 03,15 (01/01/23 20:03) O2 (01/01/23 20:03) Monitor-Rhythm Ecg Trace Only (01/01/23 20:03) Ct Head Wo-R/O Stroke (01/01/23 20:03) Ct Cervical Spine Wo (01/01/23 20:03) Chest 1 View, Ap/Pa Only (01/01/23 20:03) Acetaminophen (01/01/23 20:03) Alcohol (01/01/23 20:03) Ammonia (01/01/23 20:03) Amylase (01/01/23 20:03) Arterial Blood Gas (01/01/23 20:03) Cbc With Automated Diff (01/01/23 20:03) Comprehensive Metabolic Panel (01/01/23 20:03) Creatine Kinase (01/01/23 20:03) Creatine Kinase Mb (01/01/23 20:03) Hs C Reactive Protein (01/01/23 20:03) Fibrin Degradation Products (01/01/23 20:03) Drug Screen Stat (Urine) (01/01/23 20:03) Lactic Acid Analyzer (01/01/23 20:03) Lipase (01/01/23 20:03) Magnesium (01/01/23 20:03) Protime With Inr (01/01/23 20:03) Partial Thromboplastin Time (01/01/23 20:03) Salicylate (01/01/23 20:03) Thyroid Analyzer (01/01/23 20:03) Ua Culture If Indicated (01/01/23 20:03) Erythrocyte Sedimentation Rate (01/01/23 20:03) Myoglobin Serum (01/01/23 20:03) Troponin I Ruben (01/01/23 20:03) Ed Iv/Invasive Line Start (01/01/23 20:03) Ns Iv 1000 Ml (Sodium Chloride 0.9%) (01/01/23 20:15) Covid 19 Inhouse Test (01/01/23 20:03) Lidocaine 2% (Urojet) (Xylocaine Urojet) (01/01/23 20:15) Influenza A And B By Pcr (01/01/23 20:03) Isolation Central Supply Req (01/01/23 20:03) Ng Tube Insert & Assessment (01/01/23 20:03) Blood Culture (01/01/23 20:03) Sputum Culture (01/01/23 20:03) Ed Iv/Invasive Line Start (01/01/23 20:03) Ed Iv/Invasive Line Start (01/01/23 20:03) Vital Signs Adult Sepsis Patie Q15M (01/01/23 20:03) O2 (01/01/23 20:03) Remove Rings In Anticipation O (01/01/23 20:03) Cefepime Injection (Maxipime Injection) (01/01/23 20:15) Propofol Drip (Icu) (Diprivan Drip (Icu) (01/01/23 20:04) Propofol Drip (Icu) (Diprivan Drip (Icu) (01/01/23 20:15) Sedation Communication Q48H (01/01/23 20:08) Arterial Blood Draw - Obtain (01/01/23 ) Sodium Bicarbonate 8.4% Syr (Sodium Bica (01/01/23 20:30) Manual Differential (01/01/23 20:04) Labetalol Injection (Normodyne Injection (01/01/23 21:00) Insulin (Regular) Human (Novolin R (Per (01/01/23 21:15) D50w (Emergency) Syringe (Dextrose 50% 5 (01/01/23 21:15) Sodium Polystyrene Powder (Kayexalate P (01/01/23 21:15) Calcium Chloride 10% Injection (Calcium (01/01/23 21:15) Albuterol Pre-Mix Nebs (Rt) (Proventil (01/01/23 21:06) Rt Request For Service (01/01/23 21:06) Svn Small Volume Nebulizer (01/01/23 21:06) Arterial Blood Gas (01/01/23 21:06) Rocuronium 5 Ml Syringe (Rocuronium 5 Ml (01/01/23 21:30) Calc Gluc 1 Gm/100 Ml Ivpb (Calcium Gluc (01/01/23 21:35) D50w (Emergency) Syringe (Dextrose 50% 5 (01/01/23 21:39) Arterial Blood Draw - Obtain (01/01/23 ) Ns (Ivpb) (Sodium C... W/Nicardipine Iv (01/01/23 22:00) Nicardipine Iv (Pyxis Drip Kit (Cardene (01/01/23 21:55) Ns (Ivpb) (Sodium Chloride 0.9%) (01/01/23 21:55) Rocuronium 5 Ml Syringe (Rocuronium 5 Ml (01/01/23 20:00) Calcium Chloride 10% Injection (Calcium (01/01/23 20:00) Iv Infusion <= First Hr Ed (01/01/23 ) Vital Signs/I&O Capillary Refill : Less Than 3 Seconds Blood Pressure Mean: 167 Point of Care Testing Finger Stick Blood Glucose: 144 Blood Glucose Action Taken: notified provider Progress Note : Progress Note O2 SATS IN 70'S ON ARRIVAL, WITH PT BEGIN BAGGED VIA ET TUBE BREATH SOUNDS ARE EQUAL ON AUSCULTATION PT SWITCHED TO VENTILATOR ON ARRIVAL TO ER, AND SATS IMMEDIATELY UP TO 100%. PT IS TACHYCARDIC AND HYPERTENSIVE ON ARRIVAL, HR 114, BP 202/139, TEMP 36.9 = 98.4 LABS INCLUDING ABG'S,CBC, CMP, MG, PT/PTT, CARDIAC ENZYMES, BLOOD CULTURES, ETOH AND DRUG SCREEN, LACTIC ACID, COVID AND FLU TESTS ORDERED CT HEAD/CERVICAL SPINE, AND CXR ORDERED. GIVEN: -CEFEPIME -LABETALOL -NICARDIPINE DRIP -BICARB -INSULIN + D50 -CALCIUM CHLORIDE -ALBUTEROL NEBULIZER -KAYEXELATE VIA NG TUBE SEDATION CONTINUED USING PROPOFOL AND ROCURONIUM SIGNIFICANT LAB ABNORMALITIES: -ABG'S ON ARRIVAL: PH 7.08, PCO2 47, PO2 71, HCO3 13, O2 SAT 85% -REPEAT ABG'S PRIOR TO TRANSFER: PH 7.27, PCO2 44, PO2 135, HCO3 20, O2 SAT 100% -WBC 25.7 -PT/PTT/INR/D-DIMER--15.0/29/1.1/4.84 -K+ 6.1 -CO2 9 -ANION GAP 25 -BUN/CR 59/12.53 -GLUCOSE 173 -LACTIC ACID 11.10 -MG 3.4 -AMMONIA 35 -CK 1101, CK-MB 11.3, MYOGLOBIN 4794 -TROPONIN 0.153 -CRP 0.59 -UA WITH PROTEIN, RBC'S, FEW BACTERIA -UDS + FOR THC, ETOH NEG CT OF HEAD SHOWS INTRACRANIAL BLEEDING. CXR DOES NOT SHOW OVERT FLUID OVERLOAD PT'S MOTHER AND BROTHER ARE HERE, AND DISCUSSED TEST RESULTS, AND NEED FOR TRANSFER. ALSO DISCUSSED PT'S VERY CRITICAL CONDITION, AND CONCERNS THAT HE MAY NOT SURVIVE THIS, AND THEY APPEAR TO UNDERSTAND. REVIEWED PRIOR RECORDS--ER VISITS X 2 THIS YEAR, NO OTHER VISITS HERE. ECG Initial ECG Impression Date: January 01, 2023 Initial ECG Impression Time: 21:25 Initial ECG Rate: 129 Initial ECG Rhythm: S.Tach (TALL PEAKED T-WAVES) Initial ECG Intervals: Normal Initial ECG Impression: Nonspecific Changes Initial ECG Comparisson: No Previous ECG Available Comment INTERPRETED BY ME Diagnostic Imaging Comments CXR--PER RADIOLOGIST REPORT FINDINGS: Support devices: Right central venous catheter tip projects over the SVC. Endotracheal tube projects over the upper trachea. Lungs: Normal lung volume. No focal consolidation. Stable pulmonary vasculature. Pleura: No pleural effusion or pneumothorax. Heart and Mediastinum: Cardiomegaly. Pulmonary vascularity is within normal limits. Osseous Structures and Soft Tissues: No acute osseous abnormality. Normal soft tissues. IMPRESSION: Cardiomegaly. No focal consolidation or carlos manuel pulmonary edema. CT HEAD/CERVICAL SPINE--PER RADIOLOGIST REPORT AT 2053 Right posterior scalp hematoma trace subarachnoid hemorrhage in the right temporal lobe. The modi-white matter differentiation is preserved. No intraventricular blood. No blood within the suprasellar cisterns. Intraparenchymal hemorrhage in the right occipital lobe measuring 1.0 cm. Scattered hypoattenuation within the bilateral subcortical white matter. No midline shift or mass effect. No intracranial mass. The sella is normal. The paranasal sinuses and mastoids are clear. Mild mucosal thickening within the bilateral maxillary sinuses. IMPRESSION: Intraparenchymal hematoma within the right occipital lobe measuring up to 1 cm. Trace subarachnoid hemorrhage in the right temporal sulci. Age indeterminate nonspecific hypoattenuation within the bilateral subcortical white matter. MRI with and without contrast should be obtained for further workup as these may represent acute infarcts. Findings: The cervical spine is normally aligned. No acute fracture. No aggressive lytic or blastic osseous lesion. The intervertebral disc heights are maintained. No high-grade spinal canal stenosis or neural foraminal narrowing. The thyroid gland is normal. No cervical lymphadenopathy. The visualized aerodigestive tract is unremarkable. The visualized portions of the lungs are clear. Impression: No acute osseous abnormality of the cervical spine. Reviewed: Reviewed by Me Critical Care Note Critical Care Start Time: 19:59 Stop Time: 21:45 Total Time (minutes) 105 Departure Communication (Admissions) 2058--CALLED [facility]. THEY WILL CALL BACK. [facility] IS BEING CONTACTED BY ER STAFF 2122--[facility] CALLED BACK, PT HAS BEEN ACCEPTED BY DR. JIMI BARAJAS. 2144--[facility] HERE TO TRANSPORT PT. Impression Primary Impression: UNRESPONSIVE--UNWITNESSED EPISODE Additional Impressions: Intracranial hemorrhage Malignant hypertension ESRD on peritoneal dialysis S/P RECENT RENAL TRANSPLANT Alport's syndrome POSSIBLE SEPSIS Acute respiratory failure Disposition: XFER SHT-TRM HOSP Condition: Critical Transfer Transfer Reason: Exceeds level of care (NEED FOR MULTISPECIALTY CARE UNAVAILABLE HERE) Transfer Facility: [facility] Method of Transfer: [facility] ([facility]) Departure-Patient Inst. Referrals: RUBIN FARRELL DO (PCP) Primary Care Physician ANALISA LEARY DO January 24, 2023 05:43
== END 2023-01-01 22:30 | disposition short-term general hospital (02) ==
LOC: EDUNIT# 19:58 → ER 19:59
DX: I62.9 Nontraumatic intracranial hemorrhage, unspecified (principal); I12.0 Hypertensive chronic kidney disease with stage 5 chronic kidney disease or end stage renal disease; N18.6 End stage renal disease; Q87.81 Alport syndrome; J96.00 Acute respiratory failure, unspecified whether with hypoxia or hypercapnia; Z94.0 Kidney transplant status; Z99.2 Dependence on renal dialysis; Z20.822 Contact with and (suspected) exposure to COVID-19
CPT/HCPCS: 36600; 51702; 70450; 71045; 72125; 80053; 80306; 81000; 82140; 82150; 82550; 82553; 82805; 82947; 83605; 83690; 83735; 83874; 84443; 84484; 85007; 85027; 85379; 85610; 85652; 85730; 86141; 87040; 87636; 93005; 93041; 94002; 96361; 96365; 96375; 99291; G0480 ×3; 36415; 80320; 80329

== ENCOUNTER 2023-01-23 18:06 | Emergency (ER) | payer OTHER ==
[~2023-01-23] VITALS: Ht 178 cm; Wt 74.0 kg
--- NOTE | 2023-01-23 18:27 | ED General ---
General Chief Complaint: General Problems/Pain Stated Complaint: HIGH POTASSIUM LEVELS Source of Information: Patient History of Present Illness Date Seen by Provider: January 23, 2023 Time Seen by Provider: 18:20 Initial Comments PT ARRIVES VIA POV PT HAS ESRD, HAS HAD RECENT KIDNEY TRANSPLANT WITH REJECTION, IS STILL ON [id number] ( TODAY IS SUNDAY) PT WAS AT TODAY FOR ROUTINE FOLLOW UP APPOINTMENT, AND HAD ROUTINE LAB DONE, AND WAS TOLD HIS POTASSIUM WAS HIGH AT 6.5 AND WAS PRESCRIBED MEDICATION, BUT HE DID NOT GET PRESCRIPTION FILLED, SO NOW IS HERE IN ER. PT DENIES ANY SYMPTOMS OF ANY KIND NO CHEST PAIN OR PALPITATIONS NO SHORTNESS OF BREATH NO NAUSEA/VOMITING NO PAIN ANYWHERE NO FEVER/SWEATS/CHILLS NO SWELLING NO DIZZINESS OR SYNCOPE PT HAD RENAL TRANSPLANT DONE AT THE END OF NOVEMBER, AND WAS RELEASED 12/28/22. HE HAS KNOWN REJECTION OF THE KIDNEY AND IS SUPPOSED TO BE HAVING THE TRANSPLANTED KIDNEY REMOVED IN 2-4 WEEKS HE HAD BEEN GETTING PERITONEAL DIALYSIS PRIOR TO KIDNEY TRANSPLANT HE WAS FOUND UNRESPONSIVE FACE DOWN IN A CLOSET, WAS INTUBATED AND TRANSFERRED TO ON 01/01/23. HE WAS HOSPITALIZED FOR A WEEK. HE WAS STARTED ON HEMODIALYSIS AT THAT TIME, BUT PERITONEAL DIALYSIS LINE HAS BEEN LEFT IN PLACE IN ANTICIPATION THAT HE MIGHT GO BACK TO THAT AFTER THE KIDNEY IS REMOVED. PCP; NONE FOR NEPHROLOGY / RENAL TRANSPLANT Allergies and Home Medications Allergies Coded Allergies: No Known Drug Allergies (Unverified , 10/25/22) Patient Home Medication List Home Medication List Reviewed: Yes Carvedilol (Carvedilol) 25 Mg Tablet, 25 MG PO BID Prescribed by: URVASHI DE LA TORRE on 11/16/22 175 Doxycycline Hyclate (Doxycycline Hyclate) 100 Mg Tablet, 100 MG PO BID Prescribed by: AJ FIGUEROA on 10/25/22 1209 Hydrocodone/Acetaminophen (Hydrocodone-Acetamin 5-325 mg) 5 Mg-325 Mg Tablet, 1 TAB PO Q4H PRN for PAIN-MODERATE (5-7) Prescribed by: AJ FIGUEROA on 10/25/22 1210 Losartan Potassium (Losartan Potassium) 50 Mg Tablet, 50 MG PO DAILY Prescribed by: URVASHI DE LA TORRE on 11/16/22 175 Nifedipine (Nifedipine ER) 60 Mg Tab.er.24, 60 MG PO BID Prescribed by: URVASHI DE LA TORRE on 11/16/22 1757 Ondansetron (Ondansetron Odt) 4 Mg Tab.rapdis, 4 MG SL Q4H PRN for NAUSEA/VOMITING Prescribed by: AJ FIGUEROA on 10/25/22 1209 Review of Systems Review of Systems Constitutional: no symptoms reported EENTM: no symptoms reported Respiratory: no symptoms reported Cardiovascular: no symptoms reported Gastrointestinal: no symptoms reported Genitourinary: see HPI Musculoskeletal: no symptoms reported Skin: no symptoms reported Psychiatric/Neurological: No Symptoms Reported Hematologic/Lymphatic: No Symptoms Reported Immunological/Allergic: no symptoms reported Past Kszeppu-Fmhvlz-Tnvuvi Hx Patient Social History Tobacco Use?: No Substance use?: Yes Substance type: Marijuana Substance frequency: Daily Alcohol Use?: No Immunizations Up To Date First/Initial COVID19 Vaccinat: unknown Past Medical History Surgeries: Yes Cardiac, Dialysis, Kidney Transplant, Renal Respiratory: No Cardiac: Yes Hypertension Neurological: No Genitourinary: Yes (ALPORT'S SYN;S/P RENAL TRANSPLANT & DIALYSIS-BOTH PERITONEAL % HEMODIALYSIS) Renal Failure Gastrointestinal: No Musculoskeletal: No Endocrine: No HEENT: No Cancer: No Psychosocial: No Integumentary: No Blood Disorders: No Family Medical History PT WITH ALPORT'S SYNDROME WITH HTN AND END STAGE RENAL FAILURE HE HAS BEEN DOING PERITONEAL DIALYSIS WITH SITE IN LEFT LOWER ABDOMEN. HE HAD A RENAL TRANSPLANT AT THE END OF NOVEMBER, AND WAS DISMISSED TO HOME 12/28/22. HE HAS HAD ONGOING REJECTION FROM TIME OF TRANSPLANT HE PRESENTED TO ER 01/01/23 AFTER BEING FOUND UNRESPONSIVE AT HOME, HE WAS TRANSFERRED BACK TO AT THAT TIME AND DISMISSED BACK TO HOME AFTER A WEEK. HE WAS STARTED ON HEMODIALYSIS [id number] AT THAT TIME, BUT PERITONEAL DIALYSIS SITE WAS LEFT INTACT, IN ANTICIPATION OF RE-STARTING PERITONEAL DIALYSIS AT SOME POINT. HE IS TO HAVE HIS TRANSPLANTED KIDNEY REMOVED SOMETIME IN FEBRUARY 2023. Physical Exam Vital Signs Vital Signs - First Documented 01/23/23 18:20 Temp 36.8 Pulse 79 Resp 18 B/P (MAP) 144/95 (111) Pulse Ox 98 O2 Delivery Room Air Capillary Refill : Height, Weight, BMI Height: '" Weight: lbs. oz. kg; 19.00 BMI Method: General Appearance: No Apparent Distress, WD/WN HEENT: PERRL/EOMI, Pale Conjunctivae (L), Pale Conjunctivae (R) Neck: Normal Inspection Respiratory: Normal Breath Sounds, No Accessory Muscle Use, No Respiratory Distress, Other (RIGHT CENTRAL DIALYSIS LINE IN PLACE, WITHOUT SIGNS OF INFECTION) Cardiovascular: Regular Rate, Rhythm, No Edema, No JVD, No Murmur, Normal Peripheral Pulses Gastrointestinal: Non Tender, Soft, Other (LLQ WITH PERITONEAL DIALYSIS SITE, AND TUBING IN PLACE. NO SIGNS OF INFECTION. ) Back: No CVA Tenderness Extremity: Normal Inspection, No Pedal Edema Neurologic/Psychiatric: Alert, Oriented x3, No Motor/Sensory Deficits, Normal Mood/Affect, steel unloader II-XII Norm as Tested Skin: Warm/Dry, Pallor (SALLOW) Focused Exam Lactate Level 01/23/23 18:25: Lactic Acid Level 0.75 Lactic Acid Level Laboratory Tests Test 01/23/23 18:25 Lactic Acid Level 0.75 MMOL/L (0.50-2.00) Procedures/Interventions Date of ETT Placement: January 01, 2023 Time of ETT Placement: 2011 Progress/Results/Core Measures Suspected Sepsis SIRS Temperature: Pulse: Respiratory Rate: Laboratory Tests 01/23/23 18:25: White Blood Count 8.2 Blood Pressure / Mean: 01/23/23 18:25: Lactic Acid Level 0.75 Laboratory Tests 01/23/23 18:25: Creatinine 8.42H, INR Comment 1.1, Platelet Count 236, Total Bilirubin 0.5 Results/Orders Lab Results Laboratory Tests Test 01/23/23 18:25 Range/Units White Blood Count 8.2 4.3-11.0 10^3/uL Red Blood Count 2.73 L 4.30-5.52 10^6/uL Hemoglobin 8.8 L 13.3-17.7 g/dL Hematocrit 26 L 40-54 % Mean Corpuscular Volume 97 80-99 fL Mean Corpuscular Hemoglobin 32 25-34 pg Mean Corpuscular Hemoglobin Concent 33 32-36 g/dL Red Cell Distribution Width 15.3 H 10.0-14.5 % Platelet Count 236 130-400 10^3/uL Mean Platelet Volume 9.7 9.0-12.2 fL Immature Granulocyte % (Auto) 11 % Neutrophils (%) (Auto) 77 H 42-75 % Lymphocytes (%) (Auto) 8 L 12-44 % Monocytes (%) (Auto) 4 0-12 % Eosinophils (%) (Auto) 0 0-10 % Basophils (%) (Auto) 1 0-10 % Neutrophils # (Auto) 6.3 1.8-7.8 10^3/uL Lymphocytes # (Auto) 0.7 L 1.0-4.0 10^3/uL Monocytes # (Auto) 0.3 0.0-1.0 10^3/uL Eosinophils # (Auto) 0.0 0.0-0.3 10^3/uL Basophils # (Auto) 0.1 0.0-0.1 10^3/uL Immature Granulocyte # (Auto) 0.9 H 0.0-0.1 10^3/uL Neutrophils % (Manual) 86 % Lymphocytes % (Manual) 7 % Monocytes % (Manual) 5 % Band Neutrophils 2 % Anisocytosis MODERATE Prothrombin Time 13.9 12.2-14.7 SEC INR Comment 1.1 0.8-1.4 Activated Partial Thromboplast Time 29 24-35 SEC Sodium Level 132 L 135-145 MMOL/L Potassium Level 7.4 #*H 3.6-5.0 MMOL/L Chloride Level 97 L 98-107 MMOL/L Carbon Dioxide Level 23 21-32 MMOL/L Anion Gap 12 5-14 MMOL/L Blood Urea Nitrogen 48 H 7-18 MG/DL Creatinine 8.42 H 0.60-1.30 MG/DL Estimat Glomerular Filtration Rate 8 BUN/Creatinine Ratio 6 Glucose Level 111 H 70-105 MG/DL Lactic Acid Level 0.75 0.50-2.00 MMOL/L Calcium Level 10.3 H 8.5-10.1 MG/DL Corrected Calcium 10.1 8.5-10.1 MG/DL Phosphorus Level 3.7 2.3-4.7 MG/DL Magnesium Level 1.6 1.6-2.4 MG/DL Total Bilirubin 0.5 0.1-1.0 MG/DL Aspartate Amino Transf (AST/SGOT) 19 5-34 U/L Alanine Aminotransferase (ALT/SGPT) 19 0-55 U/L Alkaline Phosphatase 58 40-136 U/L Troponin I 0.028 <0.028 NG/ML Total Protein 7.1 6.4-8.2 GM/DL Albumin 4.3 3.2-4.5 GM/DL My Orders Orders - ANALISA LEARY DO Ed Iv/Invasive Line Start (01/23/23 18:23) Ekg Tracing (01/23/23 18:23) Monitor-Rhythm Ecg Trace Only (01/23/23 18:23) Cbc With Automated Diff (01/23/23 18:23) Comprehensive Metabolic Panel (01/23/23 18:23) Lactic Acid Analyzer (01/23/23 18:23) Magnesium (01/23/23 18:23) Protime With Inr (01/23/23 18:) Partial Thromboplastin Time (01/23/23 18:23) Troponin I [place] (01/23/23 18:23) Chest 1 View, Ap/Pa Only (01/23/23 18:23) Phosphorus (01/23/23 18:23) Manual Differential (01/23/23 18:25) D50w (Emergency) Syringe (Dextrose 50% 5 (01/23/23 19:00) Insulin (Regular) Human (Novolin R (Per (01/23/23 19:00) Calcium Chloride 10% Injection (Calcium (01/23/23 19:00) Albuterol Pre-Mix Nebs (Rt) (Proventil (01/23/23 18:50) Rt Request For Service (01/23/23 18:50) Svn Small Volume Nebulizer (01/23/23 18:50) Sodium Polystyrene Powder (Kayexalate P (01/23/23 19:00) Calc Gluc 1 Gm/100 Ml Ivpb (Calcium Gluc (01/23/23 19:00) Medications Given in ED Current Medications Medications Dose Ordered Sig/Alicia Route Start Time Stop Time Status Last Admin Dose Admin Calcium Gluconate/ Sodium Chloride 100 ml @ 120 mls/hr ONCE ONCE IV 01/23/23 19:00 01/23/23 19:49 DC 01/23/23 19:08 120 MLS/HR Dextrose 50 ml ONCE ONCE IV 01/23/23 19:00 01/23/23 19:01 DC 01/23/23 19:07 50 ML Insulin Human Regular 10 unit ONCE ONCE IV 01/23/23 19:00 01/23/23 19:01 DC 01/23/23 19:07 10 UNIT Sodium Polystyrene Sulfonate 30 gm ONCE ONCE PO 01/23/23 19:00 01/23/23 19:01 DC 01/23/23 19:08 30 GM Vital Signs/I&O 01/23/23 01/23/23 01/23/23 18:20 19:10 21:03 Temp 36.8 Pulse 79 86 Resp 18 23 B/P (MAP) 144/95 (111) 153/141 Pulse Ox 98 98 98 O2 Delivery Room Air Room Air Room Air 01/24/23 00:00 Intake Total 100 ml Balance 100 ml Capillary Refill : Progress Note : Progress Note VITALS ON ARRIVAL: TEMP 36.8 = 98.2, HR 79, RR 18, BP 144/95, O2 SAT 98% ON ROOM AIR. VITALS REMAINED STABLE THROUGHOUT ER STAY LABS INCLUDING CBC, CMP, PT/PTT DONE CBC WITH WBC 8.2, HGB 8.8, PLATELETS 236,000 CMP WITH NA 132, K+ 7.4, CL 97, CO2 23, ANION GAP 12, BUN/CR 48/8.42, GLUCOSE 111, MG 1.6, CALCIUM 10.3, TROPONIN 0.028, LACTIC ACID 0.75 PT/PTT/INR--13.9/29/1.1 EKG SHOWS NSR WITH TALL PEAKED T-WAVES NO ARRHYTHMIAS DURING ER STAY CXR DOES NOT SHOW ANY INFILTRATES OR EVIDENCE OF OVERT FLUID OVERLOAD, AND PT DOES NOT HAVE ANY SYMPTOMS OF FLUID OVERLOAD, NOR DOES EXAM SHOW ANY EVIDENCE OF FLUID OVERLOAD GIVEN: -ALBUTEROL NEB TREATMENT -INSULIN + D50 -KAYEXELATE -CALCIUM GLUCONATE UNEVENTFUL ER STAY DISCUSSED TEST RESULTS, AND NEED FOR TRANSFER AND PT IS AGREEABLE TO PLAN REVIEWED PRIOR RECORDS, ONLY ER VISITS AND ALL IN 2022. ECG Initial ECG Impression Date: January 23, 2023 Initial ECG Impression Time: 18:33 Initial ECG Rate: 77 Initial ECG Rhythm: Normal Sinus (TALL PEAKED T-WAVES) Initial ECG Intervals: Normal Initial ECG Intervals CT 184 QRS 96 QT/QTC 356/403 Initial ECG Impression: Nonspecific Changes Initial ECG Comparisson: Unchanged (EXCEPT FOR RATE) Comment INTERPRETED BY ME Diagnostic Imaging Comments CXR--PER RADIOLOGIST REPORT AT 1853 FINDINGS: Heart size and pulmonary vasculature are normal. The lungs are clear without consolidation, pleural effusion, or pneumothorax. The osseous structures are intact. A right-sided IJ central line is present with the tip projecting over the SVC. IMPRESSION: 1. No acute radiographic abnormality in the chest. Reviewed: Reviewed by Me Departure Communication (Admissions) 1932--CALLED [facility] 1946--SPOKE WITH DR. BISHOP, TRANSPLANT RETAIL BUSINESS DEVELOPMENT MANAGER, HE ADVISES THAT PT NEEDS DIALYSIS TONIGHT. WILL HAVE TRANSPLANT SURGEON CONTACTED AND CALL ME BACK. ER STAFF ATTEMPTING TO ARRANGE TRANSPORTATION 2007--HAVE BEEN INFORMED THAT NO LOCAL OR REGIONAL GROUND TRANSPORT AVAILABLE. W ILL ATTEMPT TO SECURE AIR TRANSPORT AT THIS TIME. 2019--[facility] WILL TRANSPORT PT, PENDING ACCEPTANCE TO [facility]. HAVE CALLED [facility]. THEY ARE SPEAKING WITH TRANSPLANT SURGEON, DR. TRAN AT THIS TIME AND WILL CALL BACK. 2029--[facility] CALLED BACK. DR. TRAN HAS ACCEPTED PT, PT TO GO TO ICU, [facility] CONTACTED. 2053--[facility] HERE. Impression Primary Impression: End stage renal disease on dialysis Additional Impressions: Hyperkalemia S/P RECENT RENAL TRANSPLANT WITH REJECTION HTN (hypertension) Alport's syndrome Disposition: 02 XFER SHT-TRM HOSP Condition: Stable Transfer Transfer Reason: Exceeds level of care (NEED FOR NEPHROLOGY SERVICES UNAVAILABLE HERE) Transfer Facility: [facility] Method of Transfer: Air Departure-Patient Inst. Referrals: RUBIN FARRELL DO (PCP/Family) Primary Care Physician ANALISA LEARY DO January 23, 2023 18:27
[2023-01-23 18:34] LABS: BASOPHILS # (AUTO) 0.1 10^3/uL (0.0-0.1); BASOPHILS % (AUTO) 1 % (0-10); EOSINOPHILS % (AUTO) 0 % (0-10); HEMATOCRIT 26 % (40-54); HEMOGLOBIN 8.8 g/dL (13.3-17.7); LYMPHOCYTES # (AUTO) 0.7 10^3/uL (1.0-4.0); LYMPHOCYTES % (AUTO) 8 % (12-44); MEAN CORPUSCULAR HEMOGLOBIN 32 pg (25-34); MEAN CORPUSCULAR HGB CONC 33 g/dL (32-36); MEAN CORPUSCULAR VOLUME 97 fL (80-99); MEAN PLATELET VOLUME 9.7 fL (9.0-12.2); MONOCYTES # (AUTO) 0.3 10^3/uL (0.0-1.0); MONOCYTES % (AUTO) 4 % (0-12); NEUTROPHILS # (AUTO) 6.3 10^3/uL (1.8-7.8); NEUTROPHILS % (AUTO) 77 % (42-75); PLATELET COUNT 236 10^3/uL (130-400); WHITE BLOOD COUNT 8.2 10^3/uL (4.3-11.0)
[2023-01-23 18:44] LABS: ALBUMIN 4.3 GM/DL (3.2-4.5)
[2023-01-23 18:46] LABS: CALCIUM 10.3 MG/DL (8.5-10.1)
[2023-01-23 18:47] LABS: INR 1.1 (0.8-1.4); PROTHROMBIN TIME PATIENT 13.9 SEC (12.2-14.7); TOTAL PROTEIN 7.1 GM/DL (6.4-8.2)
[2023-01-23 18:48] LABS: POTASSIUM 7.4 MMOL/L (3.6-5.0)
--- NOTE | 2023-01-23 18:48 | Diagnostic Imaging Report ---
EXAMINATION: Chest 1 view HISTORY: DYSPNEA, ESRD COMPARISON: 01/01/2023 FINDINGS: Heart size and pulmonary vasculature are normal. The lungs are clear without consolidation, pleural effusion, or pneumothorax. The osseous structures are intact. A right-sided IJ central line is present with the tip projecting over the SVC. IMPRESSION: 1. No acute radiographic abnormality in the chest. Dictated by: Dictated on workstation # [id number]
[2023-01-23 18:49] LABS: BILIRUBIN,TOTAL 0.5 MG/DL (0.1-1.0)
[2023-01-23 18:50] LABS: PHOSPHORUS 3.7 MG/DL (2.3-4.7)
[2023-01-23] MEDS ORDERED: RT-ALBUTEROL SULF 2.5 MG/3 ML PRE-MIX VIAL INH STA (18:50)
[2023-01-23 18:51] LABS: CREATININE SERUM 8.42 MG/DL (0.60-1.30)
[2023-01-23 18:54] LABS: MAGNESIUM 1.6 MG/DL (1.6-2.4)
[2023-01-23 18:55] LABS: ANISOCYTOSIS MODERATE; BAND NEUTROPHILS 2 %; LYMPHOCYTES % (MANUAL) 7 %; MONOCYTES % (MANUAL) 5 %; NEUTROPHILS % (MANUAL) 86 %
[2023-01-23] MEDS ORDERED: CALCIUM CHLORIDE 1 GM/10 ML (IMS) SYR IV ONE (19:00)
[2023-01-23] MEDS ORDERED: SODIUM POLYSTYRENE POWDER 15 GM BOTTLE PO ONE (19:00)
[2023-01-23] MEDS ORDERED: DEXTROSE 50% 50 ML (IMS) SYR IV ONE (19:00)
[2023-01-23] MEDS ORDERED: CALC GLUC 1 GM/100 ML IVPB 100 ML IV ONE (19:00)
[2023-01-23] MEDS ORDERED: inSUlin (REGULAR) HUMAN 1 UNIT/0.01 ML (CHARGE PER UNIT) IV ONE (19:00)
[2023-01-23 21:03] VITALS: BP 153/141
== END 2023-01-23 21:03 | disposition short-term general hospital (02) ==
LOC: EDUNIT# 18:06 → ER 18:08
DX: E87.5 Hyperkalemia (principal); I12.0 Hypertensive chronic kidney disease with stage 5 chronic kidney disease or end stage renal disease; N18.6 End stage renal disease; Q87.81 Alport syndrome; T86.11 Kidney transplant rejection; Z99.2 Dependence on renal dialysis
CPT/HCPCS: 36415; 71045; 80053; 83605; 83735; 84100; 84484; 85007; 85027; 85610; 85730; 93005; 93041; 94640; 94644